=== PATIENT | male | born 1950 | race Caucasian/White ===

== ENCOUNTER 2020-08-28 12:02 | Emergency (ER) | payer BC, MEDICARE, SELFPAY ==
[2020-08-28 12:05] VITALS: BP 132/61; PULSE 65; RESP 18; TEMP 37; O2SAT 98; BMI 32.5
--- NOTE | 2020-08-28 12:37 | HMH.EDUTC ---
[facility] [place] Disposition Clinical Impression: UTI (urinary tract infection) Qualifiers: Urinary tract infection type: site unspecified Hematuria presence: with hematuria Qualified Code(s): N39.0 - Urinary tract infection, site not specified Disposition: Home, Self-Care Condition on Discharge: Good Instructions: Urinary Tract Infection, DI for Urinary Tract Infection (UTI), Ciprofloxacin Additional Instructions: *Increase fluids. Water not Soda or Tea *Start antibiotic immediately and be sure to take as ordered for the FULL length of time although you should start to see improvement over the next 48 hours *Be SURE to follow up anytime for new or worsening symptoms with your family doctor. AND in 48 hours for urine culture results with your family doctor, if you do not have a doctor then you may call back to the [facility] for urine culture results and further treatment. We do recommend that you choose and establish care with a Primary Care Physician. AND follow up with them in 10-14 days to repeat UA to ensure infection is resolved and blood no longer present *Be sure to let your PCP know that we sent urine cultures from the [facility] so they can follow up to ensure that you area the on the correct antibiotic Call your doctor office and make appointment for 48 hours (2 days from today) to follow up and get the results of your urine culture and further treatment Make sure to follow up with your Family Doctor for further evaluation and continuation of treatment and let them know you showed glucose in your urine Return if needed Straight to ER if any life threatening symptoms Prescriptions: Ciprofloxacin HCl [Cipro 500mg Tab] 500 mg PO BID 10 Days #20 tab Transmission Status: Pending to [facility] Referrals: Provider,Referral, [Primary Care Provider] - As needed Time of Disposition: 12:47 Medical Decision Making - Stepan Inquiry Pt receiving controlled substance: No Stepan was queried for this patient: No Vital Signs: 08/28/20 12:05 08/28/20 12:40 Temperature 98.6 F 98.6 F Temperature Source Oral Pulse Rate 65 Pulse Rate [Right Brachial] 65 Respiratory Rate 18 18 Blood Pressure 132/61 Blood Pressure [Right Arm] 132/61 Blood Pressure Mean [Right Arm] 84 Blood Pressure Source [Right Arm] Automatic Cuff Blood Pressure Position [Right Arm] Sitting 02 Sat by Pulse Oximetry 98 Oxygen Delivery Method Room Air - Lab Data Lab results reviewed: Yes: I reviewed the patient's lab results. Lab Results 08/28/20 12:39: Urine Color Yellow, Urine Appearance Clear, Urine pH 5.0, Ur Specific [place] >= 1.030, Urine Protein 2+, Urine Glucose (UA) 100, Urine Ketones Negative, Urine Blood Trace, Urine Nitrate Positive A, Urine Bilirubin Negative, Urine Urobilinogen 0.2, Ur Leukocyte Esterase Trace Orders (Tests/Meds): ORDERS Category Date Time Status Urine Culture Stat Micro 08/28/20 12:20 Ordered Medical Decision Narrative: Medication discussed with pharmacy [facility] [place] HPI - General Stated complaint: possible kidney infection Time Seen by Provider: 08/28/20 12:37 Mode of Arrival: Ambulatory Source of Information: Patient Limitations: No Limitations Description of Symptoms (Recalled from Triage Doc. by RN): PATIENT SENT FROM [facility] WHERE HE WAS BEING SEEN FOR DOT PHYSICAL AND URINE SAMPLE SHOWED POSITIVE FOR UTI. PATIENT DENIES ANY SYMPTOMS HEENT Symptoms (Recalled from RN notes): No Resp Symptoms (Recalled from RN notes): No Skin Symptoms (Recalled from RN notes): No MS Symptoms (Recalled from RN notes): No Functional Status (Recalled from RN notes): WNL - History of Present Illness Provider Complaint: Patient was having a DOT physical at [facility] when they tested his urine and found he had a UTI and was unable to treat there so they sent him here for treatment States that he is not having any burning with urination but has been having low back pain but has chronic low back pain and did not
[2020-08-28 12:40] VITALS: BP 132/61; PULSE 65; RESP 18; TEMP 37; O2SAT 98
[2020-08-28 12:41] LABS: Apearance,Urine Clear (Clear); Color,Urine Yellow (Yellow)
[2020-08-28 12:42] LABS: Bilirubin,Urine Negative (Negative); Blood, Urine Trace (Negative); Glucose,Urine (UA) 100 (Negative); Ketones,Urine Negative (Negative); Protein,Urine 2+ (Negative); Specific Gravity, Urine >= 1.030 (1.005-1.030); UTC Leukocyte Esterase,Urine Trace (Negative); UTC Nitrate,Urine Positive (Negative); Urobilinogen,Urine 0.2 EU/dl (0.2)
== END 2020-08-28 12:50 | disposition home or self-care (01) ==
PROVIDERS: Emergency Provider Nurse Practitioner
DX: N30.00 Acute cystitis without hematuria (principal); B96.20 Unspecified Escherichia coli [E. coli] as the cause of diseases classified elsewhere; E11.9 Type 2 diabetes mellitus without complications
CPT/HCPCS: 81003; 87086; 87088; 87186; 99202; G0463

== ENCOUNTER 2020-11-11 13:03 | Emergency (ER) | payer BC, MEDICARE, SELFPAY ==
[2020-11-11 13:15] VITALS: BP 151/80; PULSE 94; RESP 19; TEMP 37; O2SAT 96; BMI 31.1
--- NOTE | 2020-11-11 13:53 | HMH.EDUTC ---
[facility] [place] Clinical Impression: UTI (urinary tract infection) Qualifiers: Urinary tract infection type: site unspecified Hematuria presence: without hematuria Qualified Code(s): N39.0 - Urinary tract infection, site not specified Disposition: Home, Self-Care Condition on Discharge: Good Instructions: DI for Urinary Tract Infection (UTI), Nitrofurantoin, Phenazopyridine Additional Instructions: *Increase fluids. Water not Soda or Tea *Start antibiotic immediately and be sure to take as ordered for the FULL length of time although you should start to see improvement over the next 48 hours *Pyridium as needed Remember this medication will turn your urine Bee. This is normal but it will stain what ever it gets on *You should not use Pyridium for more than 48 hours. If so , follow up with your primary physician to review urine culture and ensure that antibiotic is adequate for infection *Be SURE to follow up anytime for new or worsening symptoms with your family doctor. AND in 48 hours for urine culture results with your family doctor, if you do not have a doctor then you may call back to the [facility] for urine culture results and further treatment. We do recommend that you choose and establish care with a Primary Care Physician. AND follow up with them in 10-14 days to repeat UA to ensure infection is resolved and blood no longer present *Be sure to let your PCP know that we sent urine cultures from the [facility] so they can follow up to ensure that you area the on the correct antibiotic Call your doctor office and make appointment for 48 hours (2 days from today) to follow up and get the results of your urine culture and further treatment Prescriptions: Nitrofurantoin Monohyd/M-Cryst [Macrobid 100 mg Capsule] 100 mg PO BID 10 Days #20 cap Transmission Status: Pending to [facility] Phenazopyridine HCl [Pyridium 200mg Tablet] 200 pow PO TID #6 tab Transmission Status: Pending to [facility] Referrals: Yulia Marin MD [Primary Care Provider] - As needed Umesh Segura MD [Staff Physician] - Time of Disposition: 14:02 Medical Decision Making - Stepan Inquiry Pt receiving controlled substance: No Stepan was queried for this patient: No Vital Signs: 11/11/20 13:15 Temperature 98.6 F Temperature Source Oral Pulse Rate [Right Brachial] 94 H Respiratory Rate 19 Blood Pressure [Right Arm] 151/80 H Blood Pressure Mean [Right Arm] 103 Blood Pressure Source [Right Arm] Automatic Cuff Blood Pressure Position [Right Arm] Sitting 02 Sat by Pulse Oximetry 96 Oxygen Delivery Method Room Air - Lab Data Lab results reviewed: Yes: I reviewed the patient's lab results. Medical Decision Narrative: Last Urine culture results reviewed and discussed with pharmacy will try Macrobid and treat for 10 days and send urine for culture again [facility] [place] - General Stated complaint: white when urinates Time Seen by Provider: 11/11/20 13:53 Mode of Arrival: Ambulatory Source of Information: Patient Limitations: No Limitations Description of Symptoms (Recalled from Triage Doc. by RN): PATIENT C/O BURNING WITH URINATION. STATES HE WAS TREATED FOR A UTI IN AUGUST BUT IS NOT BETTER HEENT Symptoms (Recalled from RN notes): No Resp Symptoms (Recalled from RN notes): No Skin Symptoms (Recalled from RN notes): No MS Symptoms (Recalled from RN notes): No Functional Status (Recalled from RN notes): WNL - History of Present Illness Provider Complaint: Patient states that he was treated in August for UTI then it got better but now it is back State that he has been having burning with urination and feeling of urgency and frequency States that he feels like he has a UTI again State that he called his PCP and they couldnt get him in until Dec so he came back to get checked - Related Data Home Medications Medication Instructions Recorded Confirmed Pramipexole Di-HCl [Mirapex 1mg 1 mg PO DAILY 08/28/20
[2020-11-11 14:07] VITALS: BP 151/80; PULSE 94; RESP 19; TEMP 37; O2SAT 96
[2020-11-11 20:53] LABS: Apearance,Urine Clear (Clear); Bilirubin,Urine Negative (Negative); Blood, Urine Negative (Negative); Color,Urine Yellow (Yellow); Glucose,Urine (UA) 100 (Negative); Ketones,Urine Negative (Negative); PH,Urine 6.5 (5.0-8.5); Protein,Urine 1+ (Negative)
[2020-11-11 20:54] LABS: UTC Leukocyte Esterase,Urine Negative (Negative); UTC Nitrate,Urine Positive (Negative); Urobilinogen,Urine 0.2 EU/dl (0.2)
== END 2020-11-11 14:10 | disposition home or self-care (01) ==
PROVIDERS: Emergency Provider Nurse Practitioner; PCP Internal Medicine
DX: N30.00 Acute cystitis without hematuria (principal); B96.20 Unspecified Escherichia coli [E. coli] as the cause of diseases classified elsewhere; E11.9 Type 2 diabetes mellitus without complications
CPT/HCPCS: G0463; 81003; 87086; 87088; 87186; 99202

== ENCOUNTER 2021-09-06 09:31 | Emergency (ER) | payer BC, MEDICARE, OTHER, SELFPAY ==
[2021-09-06 09:45] VITALS: BP 142/81; PULSE 77; RESP 19; TEMP 36.5; O2SAT 96; BMI 35.4
[2021-09-06 10:02] LABS: Apearance,Urine Cloudy (Clear); Bilirubin,Urine Negative (Negative); Blood, Urine 3+ (Negative); Color,Urine Amber (Yellow); Glucose,Urine (UA) 500 (Negative); Ketones,Urine Negative (Negative); PH,Urine 5.5 (5.0-8.5); Protein,Urine Trace (Negative); Specific Gravity, Urine 1.025 (1.005-1.030); UTC Leukocyte Esterase,Urine 1+ (Negative); UTC Nitrate,Urine Positive (Negative); Urobilinogen,Urine 0.2 EU/dl (0.2)
--- NOTE | 2021-09-06 10:02 | HMH.EDUTC ---
[facility] [place] Disposition Clinical Impression: UTI (urinary tract infection) Qualifiers: Urinary tract infection type: site unspecified Hematuria presence: with hematuria Qualified Code(s): N39.0 - Urinary tract infection, site not specified Disposition: Home, Self-Care Condition on Discharge: Good Instructions: DI for Urinary Tract Infection (UTI), Ciprofloxacin Additional Instructions: *Increase fluids. Water not Soda or Tea *Start antibiotic immediately and be sure to take as ordered for the FULL length of time although you should start to see improvement over the next 48 hours *Pyridium as needed Remember this medication will turn your urine [place]. This is normal but it will stain what ever it gets on *You should not use Pyridium for more than 48 hours. If so , follow up with your primary physician to review urine culture and ensure that antibiotic is adequate for infection *Be SURE to follow up anytime for new or worsening symptoms with your family doctor. AND in 48 hours for urine culture results with your family doctor, if you do not have a doctor then you may call back to the [facility] for urine culture results and further treatment. We do recommend that you choose and establish care with a Primary Care Physician. AND follow up with them in 10-14 days to repeat UA to ensure infection is resolved and blood no longer present *Be sure to let your PCP know that we sent urine cultures from the [facility] so they can follow up to ensure that you area the on the correct antibiotic Call your doctor office and make appointment for 48 hours (2 days from today) to follow up and get the results of your urine culture and further treatment Prescriptions: Ciprofloxacin HCl [Cipro 500mg Tab] 500 mg PO BID 10 Days #20 tab Transmission Status: Sent to [facility] Phenazopyridine HCl [Pyridium 200mg Tablet] 200 pow PO TID #6 tab Transmission Status: Sent to [facility] Referrals: Yulia Marin MD [Primary Care Provider] - As needed Time of Disposition: 10:09 Medical Decision Making - Stepan Inquiry Pt receiving controlled substance: No Stepan was queried for this patient: No Vital Signs: 09/06/21 09:45 Temperature 97.7 F Temperature Source Oral Pulse Rate [Right Brachial] 77 Respiratory Rate 19 Blood Pressure [Right Arm] 142/81 H Blood Pressure Mean [Right Arm] 101 Blood Pressure Source [Right Arm] Automatic Cuff Blood Pressure Position [Right Arm] Sitting 02 Sat by Pulse Oximetry 96 Oxygen Delivery Method Room Air - Lab Data Lab results reviewed: Yes: I reviewed the patient's lab results. Lab Results 09/06/21 09:51: Urine Color [place], Urine Appearance Cloudy, Urine pH 5.5, Ur Specific [place] 1.025, Urine Protein Trace, Urine Glucose (UA) 500, Urine Ketones Negative, Urine Blood 3+, Urine Nitrate Positive A, Urine Bilirubin Negative, Urine Urobilinogen 0.2, Ur Leukocyte Esterase 1+ A Orders (Tests/Meds): ORDERS Category Date Time Status Urine Culture Stat Micro 09/06/21 09:55 Received [facility] [place] HPI - General Stated complaint: burning with urination Time Seen by Provider: 09/06/21 10:02 Mode of Arrival: Ambulatory Source of Information: Patient Limitations: No Limitations Description of Symptoms (Recalled from Triage Doc. by RN): PATIENT C/O BLOOD IN URINE X 1 WEEK HEENT Symptoms (Recalled from RN notes): No Resp Symptoms (Recalled from RN notes): No Skin Symptoms (Recalled from RN notes): No MS Symptoms (Recalled from RN notes): No Functional Status (Recalled from RN notes): WNL - History of Present Illness Provider Complaint: Patient state that he gets UTI's State that for the last week he has been having burning with urination and for the last couple of days he thinks it got worse and had some blood in his urine States that today he was still havivng the burning so he came in - Related Data Home Medications Medication Instructions Recorded Confirmed Pramipexole
[2021-09-06 10:10] VITALS: BP 142/81; PULSE 77; RESP 19; TEMP 36.5; O2SAT 96
== END 2021-09-06 10:15 | disposition home or self-care (01) ==
PROVIDERS: Emergency Provider Nurse Practitioner; PCP Internal Medicine
DX: N39.0 Urinary tract infection, site not specified (principal); B96.20 Unspecified Escherichia coli [E. coli] as the cause of diseases classified elsewhere; R31.9 Hematuria, unspecified; E11.8 Type 2 diabetes mellitus with unspecified complications; Z79.84 Long term (current) use of oral hypoglycemic drugs
CPT/HCPCS: 81003; 87086; 87088; 87186; 99212; G0463

== ENCOUNTER 2022-10-19 18:41 | Emergency (ER) | payer BC, MEDICARE, OTHER, SELFPAY ==
[2022-10-19 18:42] VITALS: BP 144/78; PULSE 60; RESP 16; TEMP 36.8; O2SAT 94; BMI 30.2
--- NOTE | 2022-10-19 18:55 | EXP.UTC ---
Discharge Plan Disposition Patient Disposition: Still a Patient Condition: Fair Prescriptions Prescriptions: No Action carvedilol 6.25 MG tablet 6.25 mg PO BID glipizide 5 MG tablet extended release 24 hr 5 mg PO DAILY losartan 25 MG tablet 25 mg PO DAILY rosuvastatin 5 MG tablet 5 mg PO DAILY testosterone 30 MG/1.5 ML solution in metered pump w/stehpan 1 dose SQ DAILY phenazopyridine 200 MG tablet 200 pow PO TID Qty: 6 0RF ciprofloxacin HCl 500 MG tablet 500 mg PO BID 10 Days Qty: 20 0RF pramipexole 1 MG tablet 2 mg PO DAILY topiramate 25 MG tablet 25 mg PO BID Referrals Follow up/Referrals: Yulia Marin MD [Primary Care Provider] - See instructions Clinical Impressions Clinical Impression: Laceration of right index finger Discharge ED Provider[place] [facility] [place] Stated complaint: AO07/25@1000 RT index finger lac Time Seen by Provider: 10/19/22 18:55 History of Present Illness Provider Complaint: He states that, around 5 hours ago, he was cutting up cucumbers with a mandolin when he slipped and cut the tip of his right index finger off. Related Data Home Medications Medication Instructions Recorded Confirmed pramipexole 1 mg tablet 2 mg PO DAILY RLS 08/28/20 09/06/21 topiramate 25 mg tablet 25 mg PO BID . 08/28/20 09/06/21 carvedilol 6.25 mg tablet 6.25 mg PO BID Hypertension 09/06/21 09/06/21 glipizide 5 mg tablet, extended 5 mg PO DAILY Diabetes 09/06/21 09/06/21 release 24 hr losartan 25 mg tablet 25 mg PO DAILY Hypertension 09/06/21 09/06/21 rosuvastatin 5 mg tablet 5 mg PO DAILY Cholesterol 09/06/21 09/06/21 testosterone 30 mg/actuation (1.5 1 dose SQ DAILY Supplement 09/06/21 09/06/21 mL) transderm solution metered pump Previous Rx's Medication Instructions Recorded ciprofloxacin HCl 500 mg tablet 500 mg PO BID 10 days #20 tabs 09/06/21 phenazopyridine 200 mg tablet 200 pow PO TID #6 tabs 09/06/21 Allergies Allergy/AdvReac Type Severity Reaction Status Date / Time No Known Allergies Allergy Verified 09/14/18 16:17 [facility] Disclaimer: The information contained in this section may have been updated after the patient was seen, as this information can be updated by other users. Social History Smoking Status: Never smoker alcohol intake: never substance use type: denies use current occupational status: other Travel in the last 8 weeks: None household members: family housing: house ROS Obtained: Yes All systems reviewed & no additional complaints except as documented Constitutional Constitutional: Denies chills and Denies fever(s) Eyes Eyes: Denies eye discharge ENT Ears, Nose, Mouth, and Throat: Denies dizziness, Denies otalgia and Denies sore throat Cardiovascular Cardiovascular: Denies chest pain Respiratory Respiratory: Denies shortness of breath, Denies chest congestion, Denies cough, Denies stridor and Denies wheezing Gastrointestinal Gastrointestingal: Denies nausea or vomiting Musculoskeletal Musculoskeletal: Reports system reviewed and no additional complaints, except as documented and Denies arthralgias Integumentary/Breasts Skin/Breast: Denies rash Neurologic Neurologic: Denies dizziness and Denies paresthesias Allergic/Immunologic Allergic/Immunologic: Denies wheezing Physical Exam General General appearance: alert and in no apparent distress Head Head exam: atraumatic, normocephalic and normal inspection Eye Eye exam: Present normal appearance, PERRL and EOMI ENT ENT exam: Present normal exam, normal oropharynx, mucous membranes moist, TM's normal bilaterally and normal external ear exam Neck Neck exam: Present normal inspection, full ROM and trachea midline; Absent meningismus or lymphadenopathy Chest Chest inspection: Present normal inspection and symmetric chest wall rise; Absent tenderness Respiratory
[2022-10-19 19:25] VITALS: BP 143/77; PULSE 83; RESP 16; TEMP 36.7; O2SAT 95; BMI 35.2
--- NOTE | 2022-10-19 20:41 | HMH.EDGENADL ---
Discharge Plan Disposition Patient Disposition: Home, Self-Care Condition: Fair Prescriptions Prescriptions: New cefadroxil 500 mg capsule 500 mg PO BID 5 Days Qty: 10 0RF No Action carvedilol 6.25 MG tablet 6.25 mg PO BID glipizide 5 MG tablet extended release 24 hr 5 mg PO DAILY losartan 25 MG tablet 25 mg PO DAILY rosuvastatin 5 MG tablet 5 mg PO DAILY testosterone 30 MG/1.5 ML solution in metered pump w/stephan 1 dose SQ DAILY phenazopyridine 200 MG tablet 200 pow PO TID Qty: 6 0RF ciprofloxacin HCl 500 MG tablet 500 mg PO BID 10 Days Qty: 20 0RF pramipexole 1 MG tablet 2 mg PO DAILY topiramate 25 MG tablet 25 mg PO BID Referrals Follow up/Referrals: Yulia Marin MD [Primary Care Provider] - See instructions Clinical Impressions Clinical Impression: Laceration of right index finger Qualifiers: Encounter type: initial encounter Damage to nail status: with damage Foreign body presence: without foreign body Qualified Code(s): S61.310A - Laceration without foreign body of right index finger with damage to nail, initial encounter Discharge ED Provider: Isaac Foster General Adult HPI General Chief complaint: Extremity Injury, Upper Stated complaint: AO07/25@1000 RT index finger lac Time Seen by Provider: 10/19/22 18:55 Mode of Arrival: Ambulatory Limitations: No Limitations Description of Symptoms (Recalled from ER Triage Doc. by RN): pt was cutting cucumbers this morning around 1000 when he cut the end of his right pointer finger on a mandaline slicer. reports extremity has not stopped bleeding. History of Present Illness HPI narrative: This is a 72-year-old male with history of hypertension, hyperlipidemia, diabetes presenting with finger injury. Patient states that he was cutting food when he took a chunk out of his finger around 10 AM. Has been bleeding since that time. No lightheadedness, chest pain, shortness of breath, nausea or vomiting, any other injuries. Unable to get the bleeding stopped. Not on blood thinners. Related Data Home Medications Medication Instructions Recorded Confirmed pramipexole 1 mg tablet 2 mg PO DAILY RLS 08/28/20 09/06/21 topiramate 25 mg tablet 25 mg PO BID . 08/28/20 09/06/21 carvedilol 6.25 mg tablet 6.25 mg PO BID Hypertension 09/06/21 09/06/21 glipizide 5 mg tablet, extended 5 mg PO DAILY Diabetes 09/06/21 09/06/21 release 24 hr losartan 25 mg tablet 25 mg PO DAILY Hypertension 09/06/21 09/06/21 rosuvastatin 5 mg tablet 5 mg PO DAILY Cholesterol 09/06/21 09/06/21 testosterone 30 mg/actuation (1.5 1 dose SQ DAILY Supplement 09/06/21 09/06/21 mL) transderm solution metered pump Previous Rx's Medication Instructions Recorded ciprofloxacin HCl 500 mg tablet 500 mg PO BID 10 days #20 tabs 09/06/21 phenazopyridine 200 mg tablet 200 pow PO TID #6 tabs 09/06/21 cefadroxil 500 mg capsule 500 mg PO BID 5 days #10 caps 10/19/22 Allergies Allergy/AdvReac Type Severity Reaction Status Date / Time No Known Allergies Allergy Verified 09/14/18 16:17 [facility] Disclaimer: The information contained in this section may have been updated after the patient was seen, as this information can be updated by other users. Social History Smoking Status: Never smoker alcohol intake: never substance use type: denies use current occupational status: other Travel in the last 8 weeks: None household members: family housing: house ROS Obtained: Yes All systems reviewed & no additional complaints except as documented Physical Exam General General appearance: alert and in no apparent distress Respiratory Respiratory exam: Absent respiratory distress Cardiovascular Cardiovascular exam: Present regular rate and normal rhythm Extremities Exam Extremities exam: Present other (Distal amputation right first digit with arterial bleed. Does n
--- NOTE | 2022-10-19 20:43 | XR_ITS ---
PROCEDURE INFORMATION: Exam: XR Right Hand Exam date and time: 10/19/2022 8:43 PM Age: 72 years old Clinical indication: Injury or trauma; Other: Partial amputation; Amputation, traumatic; Right index finger; Patient HX: Cut finger with knife; Additional info: Right pointer finger partial amp TECHNIQUE: Imaging protocol: Radiologic exam of the right hand. Views: 3 or more views. COMPARISON: No relevant prior studies available. FINDINGS: Bones/joints: Joint space narrowing in the DIP joints and PIP joints of the fingers and metacarpal phalangeal joints and IP joint. Old avulsion fractures adjacent to the index and long finger metacarpal phalangeal joints Soft tissues: Absence of soft tissues of the distal aspect of the index finger. There may be exposed bone. No acute fracture.. Soft tissue swelling of the index finger IMPRESSION: Absence of soft tissues of the distal aspect of the index finger. There may be exposed bone. No acute fracture..
[2022-10-19 22:11] VITALS: BP 93/65; PULSE 75; RESP 16; TEMP 37; O2SAT 97
== END 2022-10-19 22:16 | disposition home or self-care (01) ==
LOC: UTC 18:47 → ER 19:06
PROVIDERS: Emergency Provider Emergency Medicine; PCP Internal Medicine
DX: E11.9 Type 2 diabetes mellitus without complications (principal); S61.210A Laceration without foreign body of right index finger without damage to nail, initial encounter; I10 Essential (primary) hypertension; E78.5 Hyperlipidemia, unspecified; W26.8XXA Contact with other sharp object(s), not elsewhere classified, initial encounter; Y93.G1 Activity, food preparation and clean up; Z23 Encounter for immunization
CPT/HCPCS: 12041; 73130; 90715; 96372; 99283

== ENCOUNTER 2023-05-27 10:04 | Emergency (ER) | payer MEDICARE, BC, SELFPAY ==
--- NOTE | 2023-05-27 10:08 | XR_ITS ---
FINAL REPORT CLINICAL HISTORY: Left foot pain after fall FINDINGS: AP, oblique and lateral views of the left foot were obtained. There is no prior exam for comparison. There are postoperative changes to the medial hindfoot. Surgical screw that is a fixing the talonavicular joint is fractured, chronicity unknown. Deformity of the talus is likely postsurgical. There is partial talocalcaneal fusion. There his advanced degenerative joint disease at the hindfoot. There is flatfoot deformity. There is no convincing acute fracture. Soft tissues are without acute abnormality. IMPRESSION: Postoperative changes as above. 1 surgical screw is fractured, chronicity unknown. Advanced degenerative disease without acute fracture. Reviewed, Interpreted and Dictated by Vivian Caal MD Transcribed by Kelsey Manning Authenticated and [facility]
--- NOTE | 2023-05-27 10:08 | XR_ITS ---
FINAL REPORT CLINICAL HISTORY: Left ankle pain after fall FINDINGS: AP, oblique, and lateral views of the left ankle were obtained. There is no prior exam for comparison. There is no fracture or dislocation. There is degenerative joint disease. There is a rounded lucency in the distal tibia which could be related to donor site for marrow given postsurgical changes of the foot. However, bony lesion is not excluded. There is diffuse soft tissue edema. IMPRESSION: Distal tibia lucency could be related to donor site, bony lesion not excluded. Diffuse soft tissue edema and degenerative changes. Reviewed, Interpreted and Dictated by Vivian Caal MD Transcribed by Kelsey Manning Authenticated and [facility]
[2023-05-27 10:50] VITALS: BP 137/84; PULSE 88; RESP 18; TEMP 36.6; O2SAT 97; BMI 31.7
--- NOTE | 2023-05-27 10:52 | EXP.UTC ---
Discharge Plan Disposition Patient Disposition: Home, Self-Care Condition: Good Prescriptions Prescriptions: No Action carvedilol 6.25 MG tablet 6.25 mg PO BID glipizide 5 MG tablet extended release 24 hr 5 mg PO DAILY losartan 25 MG tablet 25 mg PO DAILY rosuvastatin 5 MG tablet 5 mg PO DAILY testosterone 30 MG/1.5 ML solution in metered pump w/stephan 1 dose SQ DAILY phenazopyridine 200 MG tablet 200 pow PO TID Qty: 6 0RF ciprofloxacin HCl 500 MG tablet 500 mg PO BID 10 Days Qty: 20 0RF cefadroxil 500 mg capsule 500 mg PO BID 5 Days Qty: 10 0RF pramipexole 1 MG tablet 2 mg PO DAILY topiramate 25 MG tablet 25 mg PO BID Referrals Follow up/Referrals: Tyra Hsieh DPM [Staff Physician] - See instructions Yulia Marin MD [Primary Care Provider] - See instructions Activity Restrictions/Add. Instructions Additional Instructions/Restrictions: Rest the extremity, , Elevate the extremity as tolerated while you are resting. Take tylenol for pain. Follow up with Dr. Hsieh (podiatry). I put in a referral but you need to call her office and schedule an appointment. Follow up with your regular doctor. GO TO THE ER FOR ANY WORSENING SYMPTOMS Clinical Impressions Clinical Impression: Left ankle pain, Sprain of left foot, Left foot pain Instructions Patient Instructions: DI for Ankle Sprain, DI for Foot Sprain Discharge ED Provider: Tonny Tejada [facility] General Stated complaint: AO 9:00 am left ankle pain Time Seen by Provider: 05/27/23 10:52 History of Present Illness Provider Complaint: He states that he twisted his left ankle and foot this morning. Since then he has had left ankle and foot pain and swelling. He denies any other injury. Related Data Home Medications Medication Instructions Recorded Confirmed pramipexole 1 mg tablet 2 mg PO DAILY RLS 08/28/20 09/06/21 topiramate 25 mg tablet 25 mg PO BID . 08/28/20 09/06/21 carvedilol 6.25 mg tablet 6.25 mg PO BID Hypertension 09/06/21 09/06/21 glipizide 5 mg tablet, extended 5 mg PO DAILY Diabetes 09/06/21 09/06/21 release 24 hr losartan 25 mg tablet 25 mg PO DAILY Hypertension 09/06/21 09/06/21 rosuvastatin 5 mg tablet 5 mg PO DAILY Cholesterol 09/06/21 09/06/21 testosterone 30 mg/actuation (1.5 1 dose SQ DAILY Supplement 09/06/21 09/06/21 mL) transderm solution metered pump Previous Rx's Medication Instructions Recorded ciprofloxacin HCl 500 mg tablet 500 mg PO BID 10 days #20 tabs 09/06/21 phenazopyridine 200 mg tablet 200 pow PO TID #6 tabs 09/06/21 cefadroxil 500 mg capsule 500 mg PO BID 5 days #10 caps 10/19/22 Allergies Allergy/AdvReac Type Severity Reaction Status Date / Time No Known Allergies Allergy Verified 09/14/18 16:17 [facility] Disclaimer: The information contained in this section may have been updated after the patient was seen, as this information can be updated by other users. Social History Smoking Status: Never smoker alcohol intake: never substance use type: denies use current occupational status: other Travel in the last 8 weeks: None household members: family housing: house ROS Obtained: Yes All systems reviewed & no additional complaints except as documented Constitutional Constitutional: Denies chills and Denies fever(s) Eyes Eyes: Denies eye discharge ENT Ears, Nose, Mouth, and Throat: Denies dizziness, Denies otalgia and Denies sore throat Cardiovascular Cardiovascular: Denies chest pain Respiratory Respiratory: Denies shortness of breath, Denies chest congestion, Denies cough, Denies stridor and Denies wheezing Gastrointestinal Gastrointestingal: Denies nausea or vomiting Musculoskeletal Musculoskeletal: Reports as per HPI and Denies arthralgias Integumentary/Breasts Skin/Breast: Denies redness, Denies rash and Denies wounds Neurologic Neurologic: Denies dizziness and Denies paresthesias Allergic/Immunologic Allergic/Immunologic: Denies wheezing Physical Exam General General appearance: alert and in no apparent distress Head Head exam: atraumatic, normocephalic and normal inspection Eye Eye exam: Present normal appearance, PERRL and EOMI ENT ENT exam: Present normal exam, normal oropharynx, mucous membranes moist, TM's normal bilaterally and normal external ear exam Neck Neck exam: Present normal inspection, full ROM and trachea midline; Absent meningismus or lymphadenopathy Chest Chest inspection: Present normal inspection and symmetric chest wall rise; Absent tenderness Respiratory Respiratory exam: Present normal lung sounds bilaterally; Absent respiratory distress Cardiovascular Cardiovascular exam: Present regular rate and normal rhythm; Absent JVD Abdominal Exam Abdominal exam: Present soft and normal bowel sounds; Absent distention, tenderness or guarding Extremities Exam Extremities exam: Present normal capillary refill; Absent calf tenderness Expanded Lower Extremity Exam Left: Hip/Pelvis exam: Present normal inspection and full ROM; Absent tenderness Upper leg exam: Present normal inspection and full ROM; Absent tenderness Knee exam: Present normal inspection, full ROM and knee extension intact; Absent tenderness Lower leg exam: Present normal inspection, full ROM and Achilles tendon intact; Absent tenderness or Homans' sign Ankle exam: Present tenderness and swelling; Absent full ROM, abrasion, laceration, ecchymosis, deformity, crepitus, dislocation, erythema, tenderness over talofibular lig or anterior draw sign Foot/toe exam: Present full ROM and tenderness; Absent swelling, abrasion, laceration, ecchymosis, deformity, crepitus, dislocation, erythema, amputation, puncture wound, foreign body, calcaneal tenderness, tenderness at base of 5th metatarsal, nail avulsion or subungual hematoma Neurovascular/Tendon exam: Present normal capillary refill and normal fine/light touch; Absent pulse deficit, motor deficit, sensory deficit, tendon deficit or extremity cold to touch Gait: observed and limited by pain Back Exam Back exam: Present normal inspection; Absent tenderness Neurological Exam Neurological exam: Present alert and oriented X3 Psychiatric Psychiatric exam: Present normal affect and normal mood Skin Skin exam: Present warm, dry, intact and normal color Lymphatic Lymphatic Findings: no adenopathy Medical Decision Making Medical Records Medical records reviewed: No I reviewed the patient's medical records. Stepan Inquiry Pt receiving controlled substance: No Orders (Tests/Meds): ORDERS Category Date Time Status XR ankle LT min 3V Stat Exams 05/27/23 10:08 Taken XR foot LT min 3V Stat Exams 05/27/23 10:08 Taken Radiology Data #1: Image(s): Foot/Toes Image Reviewed: Yes I reviewed the patient's radiology image and Yes I have reviewed radiologist's interpretation Preliminary Findings: No Fracture Seen FINAL REPORT CLINICAL HISTORY: Left foot pain after fall FINDINGS: AP, oblique and lateral views of the left foot were obtained. There is no prior exam for comparison. There are postoperative changes to the medial hindfoot. Surgical screw that is a fixing the talonavicular joint is fractured, chronicity unknown. Deformity of the talus is likely postsurgical. There is partial talocalcaneal fusion. There his advanced degenerative joint disease at the hindfoot. There is flatfoot deformity. There is no convincing acute fracture. Soft tissues are without acute abnormality. IMPRESSION: Postoperative changes as above. 1 surgical screw is fractured, chronicity unknown. Advanced degenerative disease without acute fracture. Reviewed, Interpreted and Dictated by Vivian Caal MD Transcribed by Kelsey Manning Authenticated and [facility]: Image(s): Ankle Image Reviewed: Yes I reviewed the patient's radiology image and Yes I have reviewed radiologist's interpretation Preliminary Findings: No Fracture Seen FINAL REPORT CLINICAL HISTORY: Left ankle pain after fall FINDINGS: AP, oblique, and lateral views of the left ankle were obtained. There is no prior exam for comparison. There is no fracture or dislocation. There is degenerative joint disease. There is a rounded lucency in the distal tibia which could be related to donor site for marrow given postsurgical changes of the foot. However, bony lesion is not excluded. There is diffuse soft tissue edema. IMPRESSION: Distal tibia lucency could be related to donor site, bony lesion not excluded. Diffuse soft tissue edema and degenerative changes. Reviewed, Interpreted and Dictated by Vivian Caal MD Transcribed by Kelsey Manning Procedures Risk/Benefits of Procedure(s) Were Explained: Yes Orthopedic Splinting/Casting Injury #1: Side: left Lower Extremity Injury Location: ankle and foot Lower Extremity Immobilizer: AirCast, Bruno wrap and applied by nurse/dr shore Other Orthopedic Equipment: other (He is going to use the walker that he has at home. ) Post Cast/Splinting Neuro Status: intact and no change Post Cast/Splinting Vasc Status: intact and no change
[2023-05-27 11:58] VITALS: BP 137/84; PULSE 88; RESP 18; TEMP 36.6; O2SAT 97
== END 2023-05-27 12:05 | disposition home or self-care (01) ==
PROVIDERS: Emergency Provider Nurse Practitioner Family; PCP Internal Medicine
DX: S93.402A Sprain of unspecified ligament of left ankle, initial encounter (principal); S93.602A Unspecified sprain of left foot, initial encounter; M25.572 Pain in left ankle and joints of left foot; X50.1XXA Overexertion from prolonged static or awkward postures, initial encounter
CPT/HCPCS: 73610; 73630; 99212; 99214; G0463

== ENCOUNTER 2023-05-29 09:27 | Emergency (ER) | payer MEDICARE, BC, SELFPAY ==
--- NOTE | 2023-05-29 09:32 | XR_ITS ---
PROCEDURE INFORMATION: Exam: XR Left Knee Exam date and time: 05/29/2023 9:33 AM Age: 72 years old Clinical indication: Injury or trauma; Fall; Blunt trauma; Left; Prior surgery; Surgery date: 6+ months; Surgery type: Knee replacement 4 yrs ago; Additional info: Fall x 2 days ago TECHNIQUE: Imaging protocol: Radiologic exam of the left knee. Views: 3 views. COMPARISON: CR XR FOOT LT MIN 3V 05/27/2023 10:08 AM FINDINGS: Bones/joints: The patient is status post left knee arthroplasty. There is a nondisplaced fracture through the medial femoral condyle. The hardware appears to be intact. There is a small suprapatellar effusion. There is a nondisplaced oblique fracture through the proximal fibula. Soft tissues: Normal. IMPRESSION: 1. Status post left knee arthroplasty. There is a nondisplaced fracture through the medial femoral condyle. The hardware appears to be intact. 2. Nondisplaced fracture through the proximal fibula.
[2023-05-29 09:40] VITALS: BP 147/88; PULSE 88; RESP 18; TEMP 36.8; O2SAT 98; BMI 35.7
--- NOTE | 2023-05-29 09:52 | XR_ITS ---
PROCEDURE INFORMATION: Exam: XR Left Tibia and Fibula Exam date and time: 05/29/2023 9:51 AM Age: 72 years old Clinical indication: Injury or trauma; Fall; Blunt trauma; Lower leg; Left TECHNIQUE: Imaging protocol: Radiologic exam of the left tibia and fibula. Views: 2 views. COMPARISON: CR XR FOOT LT MIN 3V 05/27/2023 10:08 AM FINDINGS: Bones/joints: The patient is status post left knee arthroplasty. There is a nondisplaced oblique fracture through the proximal fibula. Soft tissues: Normal. IMPRESSION: Nondisplaced fracture through the proximal fibula.
--- NOTE | 2023-05-29 09:59 | ED_ITS ---
Discharge Plan Disposition Patient Disposition: Home, Self-Care Condition: Good Prescriptions Prescriptions: No Action carvedilol 6.25 MG tablet 6.25 mg PO BID glipizide 5 MG tablet extended release 24 hr 5 mg PO DAILY losartan 25 MG tablet 25 mg PO DAILY rosuvastatin 5 MG tablet 5 mg PO DAILY testosterone 30 MG/1.5 ML solution in metered pump w/stephan 1 dose SQ DAILY phenazopyridine 200 MG tablet 200 pow PO TID Qty: 6 0RF ciprofloxacin HCl 500 MG tablet 500 mg PO BID 10 Days Qty: 20 0RF cefadroxil 500 mg capsule 500 mg PO BID 5 Days Qty: 10 0RF pramipexole 1 MG tablet 2 mg PO DAILY topiramate 25 MG tablet 25 mg PO BID Referrals Follow up/Referrals: Jm Welch DO [Staff Physician] - See instructions (call office tomorrow for appointment on Tuesday if available) Yulia Marin MD [Primary Care Provider] - See instructions Activity Restrictions/Add. Instructions Additional Instructions/Restrictions: *No weight bearing use your wheelchair to get around *RICE, Rest the extremity, Ice 15-20 minutes 3-4 times daily, Compress- wear the kwadwo wrap as discussed as much as possible to help reduce swelling and pain, Elevate the extremity when at rest *Elevate when resting? *Ibuprofen 600-800mg every 6-8 hours as needed for pain an inflammation if you can take it. If need something more can take Tylenol in between doses of Ibuprofen to help Clinical Impressions Clinical Impression: Fibula fracture Qualifiers: Encounter type: initial encounter Fibula location: proximal Fracture type: closed Fracture morphology: unspecified fracture morphology Laterality: left Craig lified Code(s): S82.832A - Other fracture of upper and lower end of left fibula, initial encounter for closed fracture Closed fracture of medial condyle of distal end of left femur Qualifiers: Encounter type: initial encounter Fracture alignment: nondisplaced Qualified Code(s): S72.435A - Nondisplaced fracture of medial condyle of left femur, initial encounter for closed fracture Instructions Patient Instructions: How To Perform RICE (Rest, Ice, Compress, Elevate), Ibuprofen Discharge ED Provider: Margaux Hoyos [facility] General Stated complaint: AO 05/26 fall, left leg pain Mode of Arrival: Ambulatory Source of Information: Patient Limitations: No Limitations Time Seen by Provider: 05/29/23 09:59 Description of Symptoms (Recalled from Triage Doc. by RN): PATIENT REPORTS FALLING ON TUESDAY AND WAS SEEN IN [facility] FOR LEFT FOOT AND ANKLE PAIN. SINCE THEN HE STATES THAT HIS LEFT KNEE AND LOWER LEG STARTED HURTING WELL HEENT Symptoms (Recalled from RN notes): No Resp Symptoms (Recalled from RN notes): No Skin Symptoms (Recalled from RN notes): No MS Symptoms (Recalled from RN notes): Yes Functional Status (Recalled from RN notes): WNL History of Present Illness Provider Complaint: Patient states that he slipped in dog puke on Tuesday and fell and landed on his left leg States that he has had previous surgery on his left ankle and knee and has a screw broken in his foot States that day his foot and ankle was hurting but since then started having pain in his left knee and tib/fib area States that he feels like his knee is not sitting straight so he came back in today to get it checked Related Data Home Medications Medication Instructions Recorded Confirmed pramipexole 1 mg tablet 2 mg PO DAILY RLS 08/28/20 09/06/21 topiramate 25 mg tablet 25 mg PO BID . 08/28/20 09/06/21 carvedilol 6.25 mg tablet 6.25 mg PO BID Hypertension 09/06/21 09/06/21 glipizide 5 mg tablet, extended 5 mg PO DAILY Diabetes 09/06/21 09/06/21 release 24 hr losartan 25 mg tablet 25 mg PO DAILY Hypertension 09/06/21 09/06/21 rosuvastatin 5 mg tablet 5 mg PO DAILY Cholesterol 09/06/21 09/06/21 testosterone 30 mg/actuation (1.5 1 dose SQ DAILY Supplement 09/06/21 09/06/21 mL) transderm solution metered pump Previous Rx's Medication Instructions Recorded ciprofloxacin HCl 500 mg tablet 500 mg PO BID 10 days #20 tabs 09/06/21 phenazopyridine 200 mg tablet 200 pow PO TID #6 tabs 09/06/21 cefadroxil 500 mg capsule 500 mg PO BID 5 days #10 caps 10/19/22 Allergies Allergy/AdvReac Type Severity Reaction Status Date / Time No Known Allergies Allergy Verified 09/14/18 16:17 Worker's Comp Is this a Worker's Comp case?: No [facility] Disclaimer: The information contained in this section may have been updated after the patient was seen, as this information can be updated by other users. Social History Smoking Status: Never smoker alcohol intake: never substance use type: denies use current occupational status: other Travel in the last 8 weeks: None household members: family housing: house ROS Obtained: Yes All systems reviewed & no additional complaints except as documented and Yes Systems reviewed as appropriate & no additional complaints except as documented Constitutional Constitutional: Reports system reviewed and no additional complaints, except as documented and Reports as per HPI ENT Ears, Nose, Mouth, and Throat: Reports system reviewed and no additional complaints, except as documented and Reports as per HPI Cardiovascular Cardiovascular: Reports system reviewed and no additional complaints, except as documented and Reports as per HPI Respiratory Respiratory: Reports system reviewed and no additional complaints, except as documented and Reports as per HPI Musculoskeletal Musculoskeletal: Reports system reviewed and no additional complaints, except as documented and Reports as per HPI Comments: Pain in left knee and tib fib area since falling on Tuesday Physical Exam General General appearance: alert and in no apparent distress ENT ENT exam: Present mucous membranes moist Respiratory Respiratory exam: Present normal lung sounds bilaterally; Absent respiratory distress or wheezes Cardiovascular Cardiovascular exam: Present regular rate, normal rhythm and normal heart sounds Expanded Lower Extremity Exam Left: Knee exam: Present tenderness and other (scarring noted from previous knee surgery); Absent swelling, abrasion, deformity, dislocation or erythema Lower leg exam: Present tenderness; Absent swelling, abrasion, ecchymosis, deformity or erythema Gait: not tested/not observed Neurological Exam Neurological exam: Present alert, oriented X3 and normal gait Medical Decision Making Stepan Inquiry Pt receiving controlled substance: No Stepan was queried for this patient: No Vital Signs: 05/29/23 09:40 Temperature 98.3 F Temperature Source Oral Pulse Rate [Left] 88 Respiratory Rate 18 Blood Pressure [Left Arm] 147/88 H Blood Pressure Mean [Left Arm] 107 Blood Pressure Source [Left Arm] Automatic Cuff Blood Pressure Position [Left Arm] Sitting 02 Sat by Pulse Oximetry 98 Oxygen Delivery Method Room Air Orders (Tests/Meds): ORDERS Category Date Time Status Tibia/fibula XR left 2 views [XR tibia fibula LT 2V] Exams 05/29/23 09:52 Ordered Stat XR knee LT 3V Stat Exams 05/29/23 09:32 Taken Radiology Data #1: Image(s): Knee Image Reviewed: Yes I have reviewed radiologist's interpretation FINDINGS: Bones/joints: The patient is status post left knee arthroplasty. There is a nondisplaced fracture through the medial femoral condyle. The hardware appears to be intact. There is a small suprapatellar effusion. There is a nondisplaced oblique fracture through the proximal fibula. Soft tissues: Normal. IMPRESSION: 1. Status post left knee arthroplasty. There is a nondisplaced fracture through the medial femoral condyle. The hardware appears to be intact. 2. Nondisplaced fracture through the proximal fibula. #2: Image(s): Tib/Fib Image Reviewed: Yes I have reviewed radiologist's interpretation FINDINGS: Bones/joints: The patient is status post left knee arthroplasty. There is a nondisplaced oblique fracture through the proximal fibula. Soft tissues: Normal. IMPRESSION: Nondisplaced fracture through the proximal fibula. Physician Consults Physician Consulted: Dr Welch Time: 11:19 Reason -: Orthopedic Eval/Care Comment/Response: Spoke with Dr Welch and informed him of xray finding and he advised knee immobilizer or walking boot and see him in office on Tuesday Medical Decision Narrative: Patient states that he has walking boot at home and walker and wheelchair will place knee immobilizer in [facility] and have him follow as directed
[2023-05-29 10:44] VITALS: BP 147/88; PULSE 88; RESP 18; TEMP 36.8; O2SAT 98
== END 2023-05-29 11:32 | disposition home or self-care (01) ==
PROVIDERS: Emergency Provider Nurse Practitioner; PCP Internal Medicine
DX: S82.832A Other fracture of upper and lower end of left fibula, initial encounter for closed fracture (principal); S72.435A Nondisplaced fracture of medial condyle of left femur, initial encounter for closed fracture; W01.10XA Fall on same level from slipping, tripping and stumbling with subsequent striking against unspecified object, initial encounter
CPT/HCPCS: 73562; 73590; 99212; 99214; G0463

== ENCOUNTER 2023-06-14 14:15 | Outpatient (CLI) | payer MEDICARE, BC, SELFPAY ==
--- NOTE | 2023-06-14 14:19 | XR_ITS ---
FINAL REPORT CLINICAL HISTORY: LT Lower leg Pain STATES HX OF FRACTURE, F/U COMPARISON: 05/29/2023 FINDINGS: Two views of the left tibia/fibula were obtained. Prior knee arthroplasty. There are postoperative changes in the midfoot and rear foot. There is a stable nondisplaced comminuted fracture of the proximal fibular diaphysis. There is no acute fracture or dislocation. The joint spaces are intact. There is no soft tissue abnormality. IMPRESSION: Stable fracture proximal fibula. Postoperative changes. No acute osseous abnormality. Reviewed, Interpreted and Dictated by Santi Singh III, MD Transcribed by Kelsey Manning Authenticated and [facility]
== END 2023-06-14 23:59 ==
PROVIDERS: PCP Internal Medicine; Visit Provider Orthopaedic Surgery
DX: S93.492A Sprain of other ligament of left ankle, initial encounter (principal)
CPT/HCPCS: 73590

== ENCOUNTER 2023-07-12 14:44 | Outpatient (CLI) | payer MEDICARE, BC, SELFPAY ==
--- NOTE | 2023-07-12 15:13 | XR_ITS ---
FINAL REPORT CLINICAL HISTORY: left tib fib f/u, eval prox tib fib COMPARISON: 06/13/2023 FINDINGS: Four images of the left tibia and fibula were obtained. There is a left total knee prosthesis present. There is a minimally displaced and slightly comminuted fracture of the left proximal fibular diaphysis. Minimal callus formation is now noted. There is orthopedic hardware seen in the hindfoot, and narrowing of the ankle mortise is present. There is no soft tissue abnormality identified. IMPRESSION: Left total knee prosthesis. Minimally displaced slightly comminuted fracture of the left proximal fibular diaphysis, with callus formation noted since the prior exam. Orthopedic hardware is present in the hindfoot, and there is narrowing of the ankle mortise. Reviewed, Interpreted and Dictated by Zoran Cuellar MD Transcribed by Suzanne Cordero Authenticated and [facility]
== END 2023-07-12 23:59 ==
PROVIDERS: PCP Internal Medicine; Visit Provider Orthopaedic Surgery
DX: M79.662 Pain in left lower leg (principal); S93.492A Sprain of other ligament of left ankle, initial encounter
CPT/HCPCS: 73590